=== PATIENT | female | born 1975 | race Caucasian/White ===

== ENCOUNTER → 2021-09-09 | Day surgery (SDC) | payer BC ==
--- NOTE | 2021-09-08 11:55 | PCM.PREANE ---
Preanesthetic Assessment - Procedure Proposed Procedure: Diagnostic Colonoscopy - Anesthesia/Transfusion/Family Hx Anesthesia History: Prior Anesthesia Without Reaction Family History of Anesthesia Reaction: No Transfusion History: No Prior Transfusion(s) Intubation History: Unknown - Review of Systems General: No Symptoms Pulmonary: No Symptoms (Smoker: 1/2ppd times 25 years) Cardiovascular: No Symptoms (HTN, elevated lipids), Palpitations Gastrointestinal: No Symptoms (GERD-on occasion/Rectal bleeding), Difficulty Swallowing Neurological: No Symptoms, Headache (History of back surgeries: 2013 times ) Other: Reports: None, Easy Bruising, Thyroid Problems (thyromegaly, hypothyroid), Sinus Problem (sinus headache), Depression (History of suicide attempt), Anxiety - Physical Assessment NPO Status Date: 09/08/21 NPO Status Time: 19:30 Vital Signs: HR: 65 Sat: 98% Temp: 97.6 B/P: 111/68 Resp: 16 Height: 1.68 m Weight: 87 kg ASA Class: 2 Mental Status: Alert & Oriented x3 Airway Class: Mallampati = 2 Dentition: Reports: Normal Dentition, Caries Thyro-Mental Finger Breadths: 3 Mouth Opening Finger Breadths: 3 ROM/Head Extension: Full Lungs: Clear to Auscultation, Normal Respiratory Effort Cardiovascular: Regular Rate, Regular Rhythm, No Murmurs - Lab Values: All labs reviewed and noted and within acceptable ranges to proceed with scheduled procedure. - Allergies Allergies/Adverse Reactions: Allergies Allergy/AdvReac Type Severity Reaction Status Date / Time No Known Allergies Allergy Verified 09/08/21 12:46 - Anesthesia Plan Pre-Op Medication Ordered: None - Acknowledgements Anesthesia Type Planned: MAC Pt an Appropriate Candidate for the Planned Anesthesia: Yes Alternatives and Risks of Anesthesia Discussed w Pt/Guardian: Yes Pt/Guardian Understands and Agrees with Anesthesia Plan: Yes PreAnesthesia Questionnaire - HOME MEDS Home Medications: Home Meds Cholecalciferol (Vitamin D3) [Vitamin D3] 5,000 unit PO DAILY 09/08/21 [History] Cyanocobalamin (Vitamin B-12) [Vitamin B-12] 1,000 mcg PO DAILY 09/08/21 [History] FLUoxetine HCl [Fluoxetine HCl] 20 mg PO DAILY 09/08/21 [History] Levothyroxine [Synthroid] 100 mcg PO DAILY 09/08/21 [History] Omeprazole 20 mg PO DAILY 09/08/21 [History] hydroCHLOROthiazide [Hydrochlorothiazide] 25 mg PO DAILY 09/08/21 [History] valACYclovir HCl [Valtrex] 500 mg PO ASDIRECTED 09/08/21 [History] - CURRENT (IN HOUSE) MEDS Current Meds: Current Medications Lactated Ringer's (Ringers, Lactated) 1,000 mls @ 125 mls/hr IV ASDIRECTED DEWAYNE Lidocaine/Sodium Bicarbonate (Lidocaine 1%/Sod Bicarbonate In Ns 8.4% 1 Ml Syringe) 0.25 ml IDERM ONETIME PRN PRN Reason: Prior to IV Start Sodium Chloride (Sodium Chloride 0.9% 10 Ml Syringe) 10 ml FLUSH ASDIRECTED PRN PRN Reason: Keep Vein Open
[~2021-09-09] MED LIST: Lactated Ringers 1,000 ML IV SCH; Lactated Ringers 1,000 ML ONE; Lidocaine 1%/Sod Bicarbonate in NS 8.4% 1 ML Syringe IDERM PRN; Midazolam 1 MG/ML 2 ML SDV ONE; Propofol 200 MG/20 ML SDV ONE; Sodium Chloride 0.9% 10 ML Syringe FLUSH PRN; fentaNYL 100 MCG/2 ML SDV ONE
--- NOTE | 2021-09-09 08:42 | PCM.PRNOTE ---
- Free Text/Narrative Note: Date: 09/09/2021 Procedure: diagnostic colonoscopy Indication: few episodes of rectal bleeding, half-brother diagnosed with colon cancer in his 30s Endoscopist: Tereso Grossman MD Findings: good prep, cecum reached, single small polyp near rectosigmoid junction. Minor internal hemorrhoids. Detailed Report: The patient was taken to the endoscopy suite and placed in left lateral decubitus position. Timeout was performed and monitored anesthesia care was initiated. The anus appeared normal. Digital rectal exam was unremarkable. The colonoscope was inserted and advanced all the way to the cecum. The appendiceal orifice was visualized. The terminal ileum was briefly intubated with the scope. The prep was overall good. The scope was slowly withdrawn and mucosal surfaces carefully inspected. No abnormality was noted until approximately 20 cm from the anal verge, a small polyp in the rectosigmoid junction was identified. This was removed using hot snare polypectomy technique. The specimen was successfully retrieved. On retroflexion in the rectum, minor internal hemorrhoidal disease was noted. Air was suctioned from the distal colon and rectum prior to withdrawal of the scope. The patient tolerated the procedure well.
--- NOTE | 2021-09-09 08:53 | PCM48HPAN ---
Post Anesthesia Note - EVALUATION WITHIN 48HRS OF ANESTHETIC Vital Signs in Normal Range: Yes Patient Participated in Evaluation: Yes Respiratory Function Stable: Yes Airway Patent: Yes Cardiovascular Function Stable: Yes Hydration Status Stable: Yes Pain Control Satisfactory: Yes Nausea and Vomiting Control Satisfactory: Yes Mental Status Recovered: Yes Vital Signs: Last Vital Signs Temp 36.6 C 09/09/21 07:00 Pulse 65 09/09/21 07:00 Resp 16 09/09/21 07:00 BP 111/68 09/09/21 07:00 Pulse Ox 98 09/09/21 07:00
[2021-09-09 09:24] VITALS: BP 100/68; PULSE 68
== END | disposition home or self-care (01) ==
LOC: JD.SDS 06:52
PROVIDERS: ATTEND Surgery
DX: D12.5 Benign neoplasm of sigmoid colon (principal); K64.8 Other hemorrhoids; F17.210 Nicotine dependence, cigarettes, uncomplicated; F32.9 Major depressive disorder, single episode, unspecified; E78.5 Hyperlipidemia, unspecified; E03.9 Hypothyroidism, unspecified; K21.9 Gastro-esophageal reflux disease without esophagitis; Z79.899 Other long term (current) drug therapy; Z79.890 Hormone replacement therapy; Z98.890 Other specified postprocedural states; Z80.0 Family history of malignant neoplasm of digestive organs
CPT/HCPCS: 45385; J2250; J2704; J3010; J7120; 00811

== ENCOUNTER 2024-09-28 13:47 | Emergency (ER) | payer BC ==
[2024-09-28 15:30] VITALS: BP 125/82; PULSE 72
[2024-09-28] MEDS: Ketorolac 60 MG/2 ML SDV IM ONE (17:52)
[2024-09-28] MEDS: Diazepam 5 MG Tab PO ONE (17:55)
[2024-09-28] MEDS ORDERED: predniSONE 20 MG Tab PO ONE (20:21)
[2024-09-28] MEDS ORDERED: oxyCODONE 5 MG Tab PO ONE (20:22)
== END 2024-09-28 20:34 | disposition home or self-care (01) ==
LOC: JD.ED 13:47
DX: S29.012A Strain of muscle and tendon of back wall of thorax, initial encounter (principal); E03.9 Hypothyroidism, unspecified; F17.210 Nicotine dependence, cigarettes, uncomplicated; Z79.899 Other long term (current) drug therapy; W10.9XXA Fall (on) (from) unspecified stairs and steps, initial encounter
CPT/HCPCS: 71111; 72170; 99283; A9270; J1885; 96372